=== PATIENT | female | born 1965 | race Caucasian/White ===

== ENCOUNTER → 2021-01-27 | Day surgery (SDC) | payer BC, OTHER ==
[~2021-01-27] MED LIST: DOXEPIN HCL PO; DOXEPIN PO; FENTANYL CITRATE/PF 100MCG/2 ML INJ ONE; JINTELI 1 MG-51 EACH PO; LIDOCAINE HCL 2% LOCAL INJ 5 ML SDV VIAL INJ ONE; MIDAZOLAM HCL 2 MG/2 ML VIAL ONE; NEXIUM40 MG PO; POVIDONE IODINE 0.05% 0.05 % ML PO ONE; PROPOFOL IV EMULSION 10 MG/ML 20 ML VIAL ONE; SYNTHROID88 MCG PO
[2021-01-27 12:28] VITALS: BP 110/60
== END | disposition home or self-care (01) ==
LOC: OR 07:43
PROVIDERS: ATTEND Internal Medicine Gastroenterology
DX: K29.50 Unspecified chronic gastritis without bleeding (principal); D12.2 Benign neoplasm of ascending colon; D12.3 Benign neoplasm of transverse colon; K31.7 Polyp of stomach and duodenum; K20.90 Esophagitis, unspecified without bleeding; K57.30 Diverticulosis of large intestine without perforation or abscess without bleeding; K64.8 Other hemorrhoids; R00.1 Bradycardia, unspecified; Z01.810 Encounter for preprocedural cardiovascular examination
CPT/HCPCS: 43239; 45380; 45385; 93005; C9113; J2001; J2250; J2704; J3010; 45378